=== PATIENT | female | born 1955 | race Caucasian/White ===

== ENCOUNTER 2017-11-18 10:14 | Emergency (ER) | payer OTHER ==
[~2017-11-18] VITALS: Ht 167.6 cm; Wt 81.0 kg
[2017-11-18] MEDS ORDERED: HYDROcodone/acetaminophen 5mg/325mg tablet PO ONE (12:05)
[2017-11-18] MEDS ORDERED: HYDR-569 PO (13:52)
[2017-11-18] MEDS ORDERED: CYCL-1 PO (13:52)
[2017-11-18 14:19] VITALS: BP 121/67
== END 2017-11-18 14:20 | disposition home or self-care (01) ==
LOC: ER 10:15
DX: S06.0X0A Concussion without loss of consciousness, initial encounter (principal); S30.0XXA Contusion of lower back and pelvis, initial encounter; S13.4XXA Sprain of ligaments of cervical spine, initial encounter; S93.402A Sprain of unspecified ligament of left ankle, initial encounter; E11.9 Type 2 diabetes mellitus without complications; W11.XXXA Fall on and from ladder, initial encounter; Y93.89 Activity, other specified; Y92.89 Other specified places as the place of occurrence of the external cause; Y99.8 Other external cause status; Z90.710 Acquired absence of both cervix and uterus
CPT/HCPCS: 70450; 72125; 72192; 73610; 99284; L0172